=== PATIENT | female | born 1995 | race Caucasian/White ===

== ENCOUNTER 2019-05-10 20:45 | Emergency (ER) | payer MEDICAID, OTHER ==
[~2019-05-10] VITALS: Ht 167.6 cm; Wt 82.6 kg
[2019-05-10 21:50] VITALS: BP 118/77
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
[2019-05-10 22:30] VITALS: BP_SYST 110; BP_SYST 126; BP_DIAS 66; BP_DIAS 71
[2019-05-10] MEDS ORDERED: NORCO 5MG PO STA (22:42)
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
[2019-05-10] MEDS ORDERED: NORCO 5MG PO ONE (22:55)
[2019-05-10] MEDS ORDERED: ADACEL VIAL IM ONE ×2 (22:55→23:00)
[2019-05-10 23:30] VITALS: BP_SYST 101; BP_SYST 105; BP_DIAS 55; BP_DIAS 58
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
[2019-05-11] VITALS: BP 105/55
[2019-05-11 01:00] VITALS: BP 108/68
== END 2019-05-11 01:01 | disposition home or self-care (01) ==
LOC: ER 20:45
DX: O9A.211 Injury, poisoning and certain other consequences of external causes complicating pregnancy, first trimester (principal); S39.012A Strain of muscle, fascia and tendon of lower back, initial encounter; Z3A.01 Less than 8 weeks gestation of pregnancy; Z88.0 Allergy status to penicillin; Z88.1 Allergy status to other antibiotic agents; Y04.1XXA Assault by human bite, initial encounter; Y93.89 Activity, other specified; Y92.89 Other specified places as the place of occurrence of the external cause; Y99.8 Other external cause status
CPT/HCPCS: 36415; 76801; 76817; 84702; 90471; 90715; 99285